=== PATIENT | male | born 1975 | race Two or more races ===

== ENCOUNTER 2019-07-07 15:55 | Emergency (ER) | payer OTHER ==
[~2019-07-07] VITALS: Ht 172.7 cm; Wt 70.3 kg
[2019-07-07] MEDS ORDERED: HYDROMORPHONE 2 MG/1 ML DISP.SYRIN ONE (16:25)
[2019-07-07] MEDS ORDERED: CEFAZOLIN 1 G VIAL ONE (16:25)
[2019-07-07] MEDS ORDERED: ONDANSETRON 4 MG/2 ML VIAL ONE (16:25)
[2019-07-07] MEDS ORDERED: CEFAZOLIN 1 G in IV DEXTROSE 5% 50 ML IV ONE (16:30)
[2019-07-07] MEDS ORDERED: HYDROMORPHONE 1 MG/1 ML DISP.SYRIN IV ONE (16:30)
[2019-07-07] MEDS ORDERED: ONDANSETRON 4 MG/2 ML VIAL IV ONE (16:30)
[2019-07-07] MEDS ORDERED: IV NORMAL SALINE 1000 ML BAG IV ONE (16:30)
[2019-07-07] MEDS ORDERED: LIDOCAINE HCL 2% 20 ML VIAL ONE (16:57)
[2019-07-07] MEDS ORDERED: LIDOCAINE 2% (UROJET) 10 ML JELLY MM ONE (17:15)
[2019-07-07] MEDS ORDERED: LIDOCAINE HCL 2% 20 ML VIAL IJ ONE (17:15)
--- NOTE | 2019-07-07 17:19 | NUR ---
Patient is resting comfortably on gurney with eyes closed. Patient says that he feels so much better.
--- NOTE | 2019-07-07 17:39 | NUR ---
Patient discharged to home in stable condition with slow steady gait. Written and verbal after care instructions given to patient by LEOPOLDO Emery and myself. Patient verbalized understanding and compliance of instructions. Stressed and emphasis to follow up with ortho Doctor Lindsay as soon as possible or return to ER for worsening s/s. Patient said his friends are picking him up.
== END 2019-07-07 17:40 | disposition home or self-care (01) ==
LOC: ER 15:56
PROC: 0PSHXZZ Reposition Right Radius, External Approach (ICD-10-PCS; principal; 2019-07-07)
DX: S52.531A Colles' fracture of right radius, initial encounter for closed fracture (principal); S52.611A Displaced fracture of right ulna styloid process, initial encounter for closed fracture; W17.89XA Other fall from one level to another, initial encounter; Y92.89 Other specified places as the place of occurrence of the external cause
CPT/HCPCS: 25605; 73110 ×2; 96365; 96375; 99285; J0690; J1170; J2405; J3490; A4663; J7030